=== PATIENT | male | born 1995 | race Two or more races ===

== ENCOUNTER 2017-04-10 04:43 | Emergency (ER) | payer MEDICAID ==
[~2017-04-10] VITALS: Ht 170.2 cm; Wt 70.3 kg
[2017-04-10 07:07] VITALS: BP 130/63
== END 2017-04-10 07:16 ==
LOC: ER 04:43
DX: Z04.1 Encounter for examination and observation following transport accident (principal); Z88.6 Allergy status to analgesic agent; V47.5XXA Car driver injured in collision with fixed or stationary object in traffic accident, initial encounter; Y93.89 Activity, other specified; Y99.8 Other external cause status; Y92.410 Unspecified street and highway as the place of occurrence of the external cause